=== PATIENT | male | born 1955 | race Caucasian/White ===

== ENCOUNTER 2020-04-24 13:27 | Emergency (ER) | payer MEDICAID ==
[~2020-04-24] VITALS: Ht 175.3 cm; Wt 80.0 kg
[2020-04-24 14:27] VITALS: BP 122/89
== END 2020-04-24 14:35 | disposition home or self-care (01) ==
LOC: ER 13:50
DX: U07.1 COVID-19 (principal); B34.9 Viral infection, unspecified
CPT/HCPCS: 99281; 99283

== ENCOUNTER 2020-04-27 07:39 | Inpatient (IN) | payer MEDICAID, OTHER ==
[~2020-04-27] VITALS: Ht 157.5 cm; Wt 76.2 kg
[2020-04-27 08:39] LABS: CHLORIDE 107 mEq/L (98-107)
[2020-04-27 09:01] LABS: HEMATOCRIT. 47.2 % (42.0-52.0); HEMOGLOBIN. 15.9 g/dL (14.0-18.0); MEAN CORPUSCULAR HEMOGLOBIN 30.7 pg (28.0-32.0); MEAN CORPUSCULAR VOLUME 90.8 fL (80.0-94.0); MEAN PLATELET VOLUME 8.4 fl (7.4-10.4); PLATELET 179 x1000/uL (130-400); RED CELL DISTRIBUTION WIDTH 13.8 % (11.6-14.6)
[2020-04-27 10:50] LABS: PLATELET ESTIMATE NORMAL
[2020-04-27] MEDS ORDERED: NITROGLYCERIN 0.4MG TABLET SL SL PRN (11:15)
[2020-04-27] MEDS ORDERED: ONDANSETRON HCL 4MG/2ML INJ IV PRN (11:15)
[2020-04-27] MEDS ORDERED: KETOROLAC 15MG/ML VIAL IV PRN (11:15)
[2020-04-27] MEDS ORDERED: DOCUSATE SODIUM 100MG CAPSULE PO PRN (11:15)
[2020-04-27] MEDS ORDERED: CLONIDINE 0.1MG TABLET PO PRN (11:15)
[2020-04-27] MEDS ORDERED: LORAZEPAM 0.5MG TABLET PO PRN (11:15)
[2020-04-27] MEDS ORDERED: MAGNESIUM/ALUMINUM HYDROXIDE/SIMETHICONE 30ML UDC PO PRN (11:15)
[2020-04-27] MEDS ORDERED: GUAIFENESIN 200MG/10ML SUGAR FREE UDC PO PRN (11:15)
[2020-04-27] MEDS ORDERED: ALBUTEROL 6.7GM HFA INHALER ORI PRN (11:15)
[2020-04-27 11:57] LABS: *COCAINE SCREEN URINE NEGATIVE (NEGATIVE); METHADONE URINE SCREEN NEGATIVE (NEGATIVE); OPIATES URINE SCREEN NEGATIVE (NEGATIVE); PHENCYCLIDINE URINE SCREEN NEGATIVE (NEGATIVE)
[2020-04-27 11:58] LABS: *AMPHETAMINES SCREEN URINE NEGATIVE (NEGATIVE); CANNABINOID URINE SCREEN NEGATIVE (NEGATIVE)
[2020-04-27 11:59] LABS: *BARBITURATES SCREEN URINE NEGATIVE (NEGATIVE)
[2020-04-27 12:00] LABS: *BENZODIAZEPINES SCREEN URINE NEGATIVE (NEGATIVE)
[2020-04-27] MEDS ORDERED: AZITHROMYCIN 500 MG in DEXT 5% WATER 250 ML IV SCH (12:00)
[2020-04-27] MEDS ORDERED: CEFTRIAXONE 1 G PREMIX 50 ML IV SCH (12:00)
[2020-04-27] MEDS: GUAIFENESIN/DM 600MG/30MG ER TAB 12HR PO SCH ×2 (14:43→22:00)
[2020-04-27] MEDS: ZINC SULFATE 220 MG ( 50 ) CAPSULE PO SCH (14:43)
[2020-04-27] MEDS: ENOXAPARIN 40MG/0.4ML SYR SUBCUT SCH (14:43)
[2020-04-27] MEDS: ASCORBIC ACID 500 MG TABLET PO SCH ×2 (14:43→22:00)
[2020-04-27] MEDS ORDERED: IOHEXOL-350 100 ML BOTTLE ONE (15:05)
[2020-04-27] MEDS: DEXAMETHASONE 10 MG/ML VIAL IV SCH (17:29)
[2020-04-27] MEDS: FAMOTIDINE 20MG TABLET PO SCH ×2 (17:29→22:00)
[2020-04-27] MEDS ORDERED: ZOLPIDEM TARTRATE 5MG TABLET PO PRN (20:00)
[2020-04-28 07:01] LABS: HEMATOCRIT. 47.4 % (42.0-52.0); HEMOGLOBIN. 16.1 g/dL (14.0-18.0); MEAN CORPUSCULAR HEMOGLOBIN 31.2 pg (28.0-32.0); MEAN CORPUSCULAR VOLUME 92.1 fL (80.0-94.0); MEAN PLATELET VOLUME 8.7 fl (7.4-10.4); PLATELET 194 x1000/uL (130-400); RED BLOOD CELL COUNT 5.15 mill/uL (4.7-6.1); RED CELL DISTRIBUTION WIDTH 14.2 % (11.6-14.6)
[2020-04-28 07:07] LABS: CHLORIDE 107 mEq/L (98-107)
[2020-04-28 07:20] LABS: PHOSPHORUS 3.2 mg/dL (2.5-4.9)
[2020-04-28 07:58] LABS: PLATELET ESTIMATE NORMAL
[2020-04-28 10:30] VITALS: BP 175/100
[2020-04-28] MEDS ORDERED: ALBU6.7H9 INH (11:12)
[2020-04-28] MEDS ORDERED: NAPR-679 PO (11:14)
[2020-04-28] MEDS ORDERED: DEXA6TAB MT (11:14)
[2020-04-28] MEDS ORDERED: DEXA6TAB6 MT (11:14)
[2020-04-28 11:26] VITALS: BP 175/100
[2020-04-28] MEDS: ASCORBIC ACID 500 MG TABLET PO SCH ×2 (11:50→19:58)
[2020-04-28] MEDS: ASPIRIN 325MG EC TABLET PO SCH (11:50)
[2020-04-28] MEDS: ENOXAPARIN 40MG/0.4ML SYR SUBCUT SCH (11:50)
[2020-04-28] MEDS: ACETAMINOPHEN 325MG TABLET PO PRN (11:51)
[2020-04-28] MEDS: ZINC SULFATE 220 MG ( 50 ) CAPSULE PO SCH (11:51)
[2020-04-28 12:00] VITALS: BP 122/84
[2020-04-28] MEDS: GUAIFENESIN/DM 600MG/30MG ER TAB 12HR PO SCH ×2 (12:33→19:58)
[2020-04-28] MEDS ORDERED: AZITHROMYCIN 500 MG in DEXT 5% WATER 250 ML IV SCH (13:00)
[2020-04-28] MEDS: FAMOTIDINE 20MG TABLET PO SCH ×2 (14:27→19:58)
[2020-04-28 16:00] VITALS: BP 139/89
[2020-04-28] MEDS: AZITHROMYCIN 500 MG in DEXT 5% WATER 250 ML IV SCH (18:04)
[2020-04-28 20:00] VITALS: BP 125/80
[2020-04-29] VITALS: BP 144/69
[2020-04-29 04:00] VITALS: BP 136/79
[2020-04-29] MEDS: ALBUTEROL 6.7GM HFA INHALER ORI SCH ×4 (06:00→22:47)
[2020-04-29 08:00] VITALS: BP 137/84
[2020-04-29] MEDS: ASPIRIN 325MG EC TABLET PO SCH (09:00)
[2020-04-29] MEDS: ZINC SULFATE 220 MG ( 50 ) CAPSULE PO SCH (09:00)
[2020-04-29] MEDS ORDERED: CEFTRIAXONE 1,000 MG in DEXTROSE 5% WATER 50 ML IV SCH (11:30)
[2020-04-29] MEDS: ASCORBIC ACID 500 MG TABLET PO SCH ×2 (11:59→21:57)
[2020-04-29] MEDS: FAMOTIDINE 20MG TABLET PO SCH ×2 (11:59→21:56)
[2020-04-29] MEDS: DEXAMETHASONE 10 MG/ML VIAL IV SCH ×2 (11:59→12:01)
[2020-04-29 12:00] VITALS: BP 139/89
[2020-04-29] MEDS: GUAIFENESIN/DM 600MG/30MG ER TAB 12HR PO SCH ×2 (12:00→21:57)
[2020-04-29] MEDS: ENOXAPARIN 40MG/0.4ML SYR SUBCUT SCH (12:06)
[2020-04-29] MEDS: ACETAMINOPHEN 325MG TABLET PO PRN ×2 (12:25→21:56)
[2020-04-29 15:09] VITALS: BP 135/95
[2020-04-29] MEDS: CEFTRIAXONE 1,000 MG in DEXTROSE 5% WATER 50 ML IV SCH (15:17)
[2020-04-29] MEDS: AZITHROMYCIN 500 MG in DEXT 5% WATER 250 ML IV SCH (17:06)
[2020-04-29 20:00] VITALS: BP 134/98
[2020-04-30] VITALS: BP 133/87
[2020-04-30 04:46] VITALS: BP 132/88
[2020-04-30] MEDS: ALBUTEROL 6.7GM HFA INHALER ORI SCH ×4 (04:57→22:08)
[2020-04-30 08:00] VITALS: BP 132/90
[2020-04-30] MEDS: ASCORBIC ACID 500 MG TABLET PO SCH ×2 (10:08→20:46)
[2020-04-30] MEDS: ENOXAPARIN 40MG/0.4ML SYR SUBCUT SCH (10:08)
[2020-04-30] MEDS: FAMOTIDINE 20MG TABLET PO SCH ×2 (10:09→20:46)
[2020-04-30] MEDS: ZINC SULFATE 220 MG ( 50 ) CAPSULE PO SCH (10:09)
[2020-04-30] MEDS: GUAIFENESIN/DM 600MG/30MG ER TAB 12HR PO SCH ×2 (10:09→20:45)
[2020-04-30] MEDS: ASPIRIN 325MG EC TABLET PO SCH (10:09)
[2020-04-30] MEDS: DEXAMETHASONE 10 MG/ML VIAL IV SCH (10:11)
[2020-04-30] MEDS ORDERED: SODIUM BICARBONATE 4% (2.4MEQ) 5ML VIAL IV ONE (11:29)
[2020-04-30] MEDS ORDERED: LIDOCAINE HCL 1% 20ML VIAL (Pyxis) INJ ONE (11:29)
[2020-04-30 12:00] VITALS: BP 132/86
[2020-04-30] MEDS: CEFTRIAXONE 1,000 MG in DEXTROSE 5% WATER 50 ML IV SCH (14:25)
[2020-04-30 16:00] VITALS: BP 135/93
[2020-04-30] MEDS ORDERED: FUROSEMIDE 40MG/4ML VIAL IVP NR ×2 (16:06→18:00)
[2020-04-30] MEDS: AZITHROMYCIN 500 MG in DEXT 5% WATER 250 ML IV SCH (16:52)
[2020-04-30 20:00] VITALS: BP 130/90
[2020-04-30] MEDS: ENOXAPARIN 30MG/0.3ML SYR SUBCUT SCH (20:46)
[2020-05-01] VITALS: BP 121/84
[2020-05-01] MEDS: ALBUTEROL 6.7GM HFA INHALER ORI SCH ×3 (01:20→18:02)
[2020-05-01 04:00] VITALS: BP 131/93
[2020-05-01 07:43] LABS: CHLORIDE 107 mEq/L (98-107)
[2020-05-01 08:00] VITALS: BP 126/81
[2020-05-01] MEDS: ASCORBIC ACID 500 MG TABLET PO SCH ×2 (09:00→20:48)
[2020-05-01] MEDS: GUAIFENESIN/DM 600MG/30MG ER TAB 12HR PO SCH ×2 (09:00→20:48)
[2020-05-01] MEDS: FAMOTIDINE 20MG TABLET PO SCH ×2 (09:31→21:16)
[2020-05-01] MEDS: DEXAMETHASONE 10 MG/ML VIAL IV SCH (09:31)
[2020-05-01] MEDS: ASPIRIN 325MG EC TABLET PO SCH (09:31)
[2020-05-01] MEDS: ZINC SULFATE 220 MG ( 50 ) CAPSULE PO SCH (09:31)
[2020-05-01] MEDS: ENOXAPARIN 30MG/0.3ML SYR SUBCUT SCH ×2 (09:32→20:49)
[2020-05-01 12:00] VITALS: BP 122/82
[2020-05-01 16:00] VITALS: BP 125/76
[2020-05-01] MEDS: CEFTRIAXONE 1,000 MG in DEXTROSE 5% WATER 50 ML IV SCH (18:03)
[2020-05-01] MEDS: AZITHROMYCIN 500 MG in DEXT 5% WATER 250 ML IV SCH (18:03)
[2020-05-01 20:00] VITALS: BP 133/80
[2020-05-02] VITALS: BP 128/66
[2020-05-02] MEDS: ALBUTEROL 6.7GM HFA INHALER ORI SCH ×4 (00:50→18:22)
[2020-05-02 04:00] VITALS: BP 127/80
[2020-05-02 08:00] VITALS: BP 118/85
[2020-05-02] MEDS: ACETAMINOPHEN 325MG TABLET PO PRN (09:44)
[2020-05-02] MEDS: ASPIRIN 325MG EC TABLET PO SCH (09:44)
[2020-05-02] MEDS: ASCORBIC ACID 500 MG TABLET PO SCH ×2 (09:44→20:33)
[2020-05-02] MEDS: GUAIFENESIN/DM 600MG/30MG ER TAB 12HR PO SCH ×2 (09:45→20:33)
[2020-05-02] MEDS: ZINC SULFATE 220 MG ( 50 ) CAPSULE PO SCH (09:45)
[2020-05-02] MEDS: FAMOTIDINE 20MG TABLET PO SCH ×2 (09:45→20:33)
[2020-05-02] MEDS: DEXAMETHASONE 10 MG/ML VIAL IV SCH (09:45)
[2020-05-02] MEDS: ENOXAPARIN 30MG/0.3ML SYR SUBCUT SCH ×2 (09:46→20:33)
[2020-05-02 12:00] VITALS: BP 119/83
[2020-05-02 16:00] VITALS: BP 121/85
[2020-05-02 20:00] VITALS: BP 133/83
[2020-05-03] VITALS: BP 122/83
[2020-05-03] MEDS: ALBUTEROL 6.7GM HFA INHALER ORI SCH ×5 (00:37→22:20)
[2020-05-03 04:00] VITALS: BP 129/81
[2020-05-03 08:00] VITALS: BP 129/82
[2020-05-03] MEDS: ENOXAPARIN 30MG/0.3ML SYR SUBCUT SCH ×2 (10:30→20:24)
[2020-05-03] MEDS: ASCORBIC ACID 500 MG TABLET PO SCH ×2 (10:31→20:24)
[2020-05-03] MEDS: ZINC SULFATE 220 MG ( 50 ) CAPSULE PO SCH (10:32)
[2020-05-03] MEDS: FAMOTIDINE 20MG TABLET PO SCH ×2 (10:32→20:24)
[2020-05-03] MEDS: GUAIFENESIN/DM 600MG/30MG ER TAB 12HR PO SCH ×2 (10:32→20:24)
[2020-05-03] MEDS: ASPIRIN 325MG EC TABLET PO SCH (10:32)
[2020-05-03] MEDS: DEXAMETHASONE 10 MG/ML VIAL IV SCH (10:33)
[2020-05-03 12:00] VITALS: BP 107/68
[2020-05-03 16:00] VITALS: BP 115/72
[2020-05-03 20:00] VITALS: BP 127/84
[2020-05-04] VITALS: BP 126/80
[2020-05-04 04:00] VITALS: BP 132/88
[2020-05-04] MEDS: ALBUTEROL 6.7GM HFA INHALER ORI SCH ×4 (04:00→21:30)
[2020-05-04 08:00] VITALS: BP 130/84
[2020-05-04] MEDS: ENOXAPARIN 30MG/0.3ML SYR SUBCUT SCH ×2 (08:38→21:29)
[2020-05-04] MEDS: ASPIRIN 325MG EC TABLET PO SCH (08:38)
[2020-05-04] MEDS: GUAIFENESIN/DM 600MG/30MG ER TAB 12HR PO SCH ×2 (08:38→21:29)
[2020-05-04] MEDS: DEXAMETHASONE 10 MG/ML VIAL IV SCH (08:38)
[2020-05-04] MEDS: ZINC SULFATE 220 MG ( 50 ) CAPSULE PO SCH (08:38)
[2020-05-04] MEDS: FAMOTIDINE 20MG TABLET PO SCH ×2 (08:38→21:29)
[2020-05-04] MEDS: ASCORBIC ACID 500 MG TABLET PO SCH ×2 (08:39→21:29)
[2020-05-04 12:00] VITALS: BP 128/79
[2020-05-04 16:00] VITALS: BP 126/84
[2020-05-04 20:00] VITALS: BP 122/82
[2020-05-05] VITALS: BP 130/79
[2020-05-05 04:00] VITALS: BP_SYST 128; BP_SYST 130; BP_DIAS 79; BP_DIAS 85
[2020-05-05] MEDS: ALBUTEROL 6.7GM HFA INHALER ORI SCH ×4 (05:17→23:56)
[2020-05-05 08:00] VITALS: BP 115/76
[2020-05-05] MEDS: ZINC SULFATE 220 MG ( 50 ) CAPSULE PO SCH (08:47)
[2020-05-05] MEDS: GUAIFENESIN/DM 600MG/30MG ER TAB 12HR PO SCH ×2 (08:47→20:28)
[2020-05-05] MEDS: FAMOTIDINE 20MG TABLET PO SCH ×2 (08:47→20:28)
[2020-05-05] MEDS: DEXAMETHASONE 10 MG/ML VIAL IV SCH (08:48)
[2020-05-05] MEDS: ASCORBIC ACID 500 MG TABLET PO SCH ×2 (08:48→20:28)
[2020-05-05] MEDS: ENOXAPARIN 30MG/0.3ML SYR SUBCUT SCH ×2 (08:48→20:28)
[2020-05-05] MEDS: ASPIRIN 325MG EC TABLET PO SCH (08:48)
[2020-05-05 16:00] VITALS: BP 111/82
[2020-05-05 20:00] VITALS: BP 123/73
[2020-05-06] VITALS: BP 116/79
[2020-05-06 04:00] VITALS: BP 116/75
[2020-05-06] MEDS: ACETAMINOPHEN 325MG TABLET PO PRN (04:08)
[2020-05-06] MEDS: ALBUTEROL 6.7GM HFA INHALER ORI SCH ×4 (06:07→23:24)
[2020-05-06 08:00] VITALS: BP 111/68
[2020-05-06] MEDS: ZINC SULFATE 220 MG ( 50 ) CAPSULE PO SCH (09:00)
[2020-05-06] MEDS: ASCORBIC ACID 500 MG TABLET PO SCH ×2 (09:00→21:44)
[2020-05-06] MEDS: GUAIFENESIN/DM 600MG/30MG ER TAB 12HR PO SCH ×2 (09:00→21:44)
[2020-05-06] MEDS: ASPIRIN 325MG EC TABLET PO SCH (09:01)
[2020-05-06] MEDS: FAMOTIDINE 20MG TABLET PO SCH ×2 (09:01→21:44)
[2020-05-06] MEDS: ENOXAPARIN 30MG/0.3ML SYR SUBCUT SCH ×2 (09:01→21:44)
[2020-05-06] MEDS: DEXAMETHASONE 10 MG/ML VIAL IV SCH (09:14)
[2020-05-06 16:00] VITALS: BP 112/75
[2020-05-06 20:00] VITALS: BP 117/79
[2020-05-07] VITALS: BP 121/78
[2020-05-07 04:00] VITALS: BP 119/84
[2020-05-07] MEDS: ALBUTEROL 6.7GM HFA INHALER ORI SCH ×3 (06:16→18:02)
[2020-05-07 07:54] VITALS: BP 123/75
[2020-05-07] MEDS: DEXAMETHASONE 10 MG/ML VIAL IV SCH (09:03)
[2020-05-07] MEDS: ASCORBIC ACID 500 MG TABLET PO SCH ×2 (09:03→20:58)
[2020-05-07] MEDS: ZINC SULFATE 220 MG ( 50 ) CAPSULE PO SCH (09:03)
[2020-05-07] MEDS: GUAIFENESIN/DM 600MG/30MG ER TAB 12HR PO SCH ×2 (09:03→20:58)
[2020-05-07] MEDS: FAMOTIDINE 20MG TABLET PO SCH ×2 (09:03→20:58)
[2020-05-07] MEDS: ASPIRIN 325MG EC TABLET PO SCH (09:03)
[2020-05-07] MEDS: ENOXAPARIN 30MG/0.3ML SYR SUBCUT SCH ×2 (09:04→20:58)
[2020-05-07 12:00] VITALS: BP 116/80
[2020-05-07 16:00] VITALS: BP 124/77
[2020-05-07 20:00] VITALS: BP 113/79
[2020-05-08] VITALS: BP 126/82
[2020-05-08] MEDS: ALBUTEROL 6.7GM HFA INHALER ORI SCH ×5 (02:49→23:25)
[2020-05-08 04:00] VITALS: BP 119/83
[2020-05-08 08:00] VITALS: BP 119/79
[2020-05-08] MEDS: ENOXAPARIN 30MG/0.3ML SYR SUBCUT SCH ×2 (09:35→20:49)
[2020-05-08] MEDS: FAMOTIDINE 20MG TABLET PO SCH ×2 (09:36→20:49)
[2020-05-08] MEDS: ASCORBIC ACID 500 MG TABLET PO SCH ×2 (09:36→20:49)
[2020-05-08] MEDS: ASPIRIN 325MG EC TABLET PO SCH (09:36)
[2020-05-08] MEDS: ZINC SULFATE 220 MG ( 50 ) CAPSULE PO SCH (09:36)
[2020-05-08] MEDS: GUAIFENESIN/DM 600MG/30MG ER TAB 12HR PO SCH ×2 (09:36→20:49)
[2020-05-08 12:00] VITALS: BP 122/76
[2020-05-08 16:04] VITALS: BP 114/79
[2020-05-08 20:00] VITALS: BP 101/70
[2020-05-09] VITALS: BP 106/77
[2020-05-09 04:00] VITALS: BP 110/70
[2020-05-09] MEDS: ALBUTEROL 6.7GM HFA INHALER ORI SCH ×3 (05:29→17:05)
[2020-05-09 07:35] LABS: CHLORIDE 105 mEq/L (98-107)
[2020-05-09 08:00] VITALS: BP 106/70
[2020-05-09] MEDS: ENOXAPARIN 30MG/0.3ML SYR SUBCUT SCH (08:49)
[2020-05-09] MEDS: ASPIRIN 325MG EC TABLET PO SCH (08:49)
[2020-05-09] MEDS: ZINC SULFATE 220 MG ( 50 ) CAPSULE PO SCH (08:49)
[2020-05-09] MEDS: ASCORBIC ACID 500 MG TABLET PO SCH ×2 (08:49→21:52)
[2020-05-09] MEDS: FAMOTIDINE 20MG TABLET PO SCH ×2 (08:49→21:52)
[2020-05-09] MEDS: GUAIFENESIN/DM 600MG/30MG ER TAB 12HR PO SCH ×2 (08:49→21:52)
[2020-05-09 10:10] LABS: HEMATOCRIT. 48.1 % (42.0-52.0); HEMOGLOBIN. 16.2 g/dL (14.0-18.0); MEAN CORPUSCULAR HEMOGLOBIN 30.6 pg (28.0-32.0); MEAN CORPUSCULAR VOLUME 90.8 fL (80.0-94.0); MEAN PLATELET VOLUME 10.8 fl (7.4-10.4); RED CELL DISTRIBUTION WIDTH 14.3 % (11.6-14.6)
[2020-05-09 10:20] LABS: PLATELET 30 x1000/uL (130-400)
[2020-05-09 10:50] LABS: PLATELET ESTIMATE MARKEDLY DECREASED
[2020-05-09 12:00] VITALS: BP 117/82
[2020-05-09 16:00] VITALS: BP 119/81
[2020-05-09 20:00] VITALS: BP 113/77
[2020-05-10] VITALS: BP 120/60
[2020-05-10 04:00] VITALS: BP 100/67
[2020-05-10 08:00] VITALS: BP 102/70
[2020-05-10] MEDS: GUAIFENESIN/DM 600MG/30MG ER TAB 12HR PO SCH ×2 (08:58→20:44)
[2020-05-10] MEDS: FAMOTIDINE 20MG TABLET PO SCH ×2 (08:58→20:44)
[2020-05-10] MEDS: ZINC SULFATE 220 MG ( 50 ) CAPSULE PO SCH (08:58)
[2020-05-10] MEDS: ASCORBIC ACID 500 MG TABLET PO SCH ×2 (08:58→20:44)
[2020-05-10] MEDS: ASPIRIN 325MG EC TABLET PO SCH (08:59)
[2020-05-10 09:09] LABS: HEMATOCRIT. 49.6 % (42.0-52.0); HEMOGLOBIN. 16.8 g/dL (14.0-18.0); MEAN CORPUSCULAR HEMOGLOBIN 30.9 pg (28.0-32.0); MEAN CORPUSCULAR VOLUME 91.2 fL (80.0-94.0); MEAN PLATELET VOLUME 10.6 fl (7.4-10.4); RED BLOOD CELL COUNT 5.44 mill/uL (4.7-6.1); RED CELL DISTRIBUTION WIDTH 14.1 % (11.6-14.6)
[2020-05-10 09:32] LABS: PLATELET 12 x1000/uL (130-400)
[2020-05-10 10:39] LABS: PLATELET ESTIMATE MARKEDLY DECREASED
[2020-05-10] MEDS: ALBUTEROL 6.7GM HFA INHALER ORI SCH ×2 (12:00→18:00)
[2020-05-10 12:30] VITALS: BP 111/82
[2020-05-10] MEDS: ACETAMINOPHEN 325MG TABLET PO PRN (14:18)
[2020-05-10 16:00] VITALS: BP_SYST 110; BP_SYST 111; BP_DIAS 75; BP_DIAS 82
[2020-05-10] MEDS ORDERED: METHYLPREDNISOLONE SOD SUCC 125 MG/2 ML VIAL IV NR (16:15)
[2020-05-10 20:00] VITALS: BP 108/73
[2020-05-10] MEDS: METHYLPREDNISOLONE SOD SUCC 40 MG/ML VIAL IV SCH (20:44)
[2020-05-11] VITALS: BP 118/77
[2020-05-11] MEDS: ALBUTEROL 6.7GM HFA INHALER ORI SCH ×4 (00:28→17:45)
[2020-05-11] MEDS: ACETAMINOPHEN 325MG TABLET PO PRN ×3 (01:46→17:47)
[2020-05-11 04:00] VITALS: BP 116/74
[2020-05-11 08:00] VITALS: BP 118/76
[2020-05-11 09:30] LABS: HEMATOCRIT. 51.3 % (42.0-52.0); HEMOGLOBIN. 17.2 g/dL (14.0-18.0); MEAN CORPUSCULAR HEMOGLOBIN 30.4 pg (28.0-32.0); MEAN CORPUSCULAR VOLUME 90.7 fL (80.0-94.0); MEAN PLATELET VOLUME 10.6 fl (7.4-10.4); RED BLOOD CELL COUNT 5.66 mill/uL (4.7-6.1); RED CELL DISTRIBUTION WIDTH 14.1 % (11.6-14.6)
[2020-05-11 09:33] LABS: PLATELET 13 x1000/uL (130-400)
[2020-05-11 09:34] LABS: CHLORIDE 105 mEq/L (98-107)
[2020-05-11 09:35] LABS: D-DIMER 20.07 mg/L FEU (<0.50); PARTIAL THROMBOPLASTIN TIME 30.9 sec (23.4-31.0)
[2020-05-11 09:45] LABS: CREATINE KINASE 40 IU/L (39-308)
[2020-05-11] MEDS: METHYLPREDNISOLONE SOD SUCC 40 MG/ML VIAL IV SCH (09:52)
[2020-05-11] MEDS: ZINC SULFATE 220 MG ( 50 ) CAPSULE PO SCH (09:52)
[2020-05-11] MEDS: FAMOTIDINE 20MG TABLET PO SCH ×2 (09:52→22:06)
[2020-05-11] MEDS: ASCORBIC ACID 500 MG TABLET PO SCH ×2 (09:52→22:07)
[2020-05-11] MEDS: GUAIFENESIN/DM 600MG/30MG ER TAB 12HR PO SCH ×2 (09:54→22:06)
[2020-05-11 11:04] LABS: PLATELET ESTIMATE MARKEDLY DECREASED
[2020-05-11 12:00] VITALS: BP 121/78
[2020-05-11] MEDS: DEXAMETHASONE 4MG/ML 1ML VIAL IV SCH ×2 (14:03→17:45)
[2020-05-11 16:00] VITALS: BP 112/76
[2020-05-11 20:00] VITALS: BP 123/80
[2020-05-12] VITALS: BP 119/77
[2020-05-12] MEDS: DEXAMETHASONE 4MG/ML 1ML VIAL IV SCH ×4 (00:22→18:41)
[2020-05-12] MEDS: ALBUTEROL 6.7GM HFA INHALER ORI SCH ×4 (00:23→18:41)
[2020-05-12 04:00] VITALS: BP 115/82
[2020-05-12 08:46] VITALS: BP 118/82
[2020-05-12 09:06] LABS: ANTI-NUCLEAR ANTIBODIES DIRECT Negative (Negative)
[2020-05-12] MEDS: FAMOTIDINE 20MG TABLET PO SCH (09:36)
[2020-05-12] MEDS: ASCORBIC ACID 500 MG TABLET PO SCH (09:36)
[2020-05-12] MEDS: ZINC SULFATE 220 MG ( 50 ) CAPSULE PO SCH (09:36)
[2020-05-12] MEDS: GUAIFENESIN/DM 600MG/30MG ER TAB 12HR PO SCH (09:36)
[2020-05-12 11:52] VITALS: BP 107/69
[2020-05-12 16:25] VITALS: BP 112/69
[2020-05-12 20:00] VITALS: BP 110/73
[2020-05-13] VITALS: BP 115/72
[2020-05-13] MEDS: ASCORBIC ACID 500 MG TABLET PO SCH ×3 (00:12→22:41)
[2020-05-13] MEDS: GUAIFENESIN/DM 600MG/30MG ER TAB 12HR PO SCH ×3 (00:12→22:41)
[2020-05-13] MEDS: FAMOTIDINE 20MG TABLET PO SCH ×3 (00:12→23:50)
[2020-05-13] MEDS: DEXAMETHASONE 4MG/ML 1ML VIAL IV SCH ×5 (00:15→23:50)
[2020-05-13] MEDS: ALBUTEROL 6.7GM HFA INHALER ORI SCH ×5 (00:15→23:57)
[2020-05-13 04:00] VITALS: BP 112/79
[2020-05-13 08:00] VITALS: BP 119/76
[2020-05-13] MEDS: ZINC SULFATE 220 MG ( 50 ) CAPSULE PO SCH (08:39)
[2020-05-13 11:23] VITALS: BP 126/80
[2020-05-13 13:07] LABS: ANTI-MYELOPEROXIDASE AB < 9.0 U/mL (0.0-9.0); ANTI-PROTEINASE 3 ABS < 3.5 U/mL (0.0-3.5); ATYPICAL P-ANCA <1:20 titer (Neg:<1:20); CYTOPLASMIC C-ANCA <1:20 titer (Neg:<1:20); PERINUCLEAR P-ANCA <1:20 titer (Neg:<1:20)
[2020-05-13 15:44] VITALS: BP 124/80
[2020-05-13 20:00] VITALS: BP 118/81
[2020-05-14] VITALS: BP 112/71
[2020-05-14] MEDS: ACETAMINOPHEN 325MG TABLET PO PRN ×2 (00:01→20:26)
[2020-05-14 04:00] VITALS: BP 115/76
[2020-05-14] MEDS: DEXAMETHASONE 4MG/ML 1ML VIAL IV SCH ×4 (05:51→23:38)
[2020-05-14] MEDS: ALBUTEROL 6.7GM HFA INHALER ORI SCH ×4 (05:52→23:38)
[2020-05-14 08:00] VITALS: BP 116/85
[2020-05-14] MEDS: ASCORBIC ACID 500 MG TABLET PO SCH ×2 (09:40→20:17)
[2020-05-14] MEDS: FAMOTIDINE 20MG TABLET PO SCH ×2 (09:40→20:17)
[2020-05-14] MEDS: ZINC SULFATE 220 MG ( 50 ) CAPSULE PO SCH (09:40)
[2020-05-14 12:00] VITALS: BP 120/78
[2020-05-14] MEDS: GUAIFENESIN/DM 600MG/30MG ER TAB 12HR PO SCH ×2 (13:05→20:17)
[2020-05-14 14:31] LABS: BG BASE EXCESS -2.8 mmol/L (-2.0-2.0); BG CARBOXYHEMOGLOBIN 0.8 % (0.5-1.5); BG DEOXYHEMOGLOBIN 11.6 % (0.0-5.0); BG FRACTION INSPIRED OXYGEN 99.9; BG HCO3 ACT 19.6 mmol/L (22.0-26.0); BG METHEMOGLOBIN 0.3 % (0.0-1.5); BG OXYGEN SATURATION 88.3 % (92.0-98.5); BG OXYHEMOGLOBIN 87.3 % (94.0-97.0); BG PCO2 29.3 mmHg (35.0-45.0); BG PH 7.444 (7.350-7.450); BG PO2 53.5 mmHg (75.0-100.0); BG SAMPLE SITE RIGHT RADIAL; BG TOTAL HEMOGLOBIN 17.2 g/dL (12.0-18.0); BG VENT MODE MASK - NRB
[2020-05-14 16:00] VITALS: BP 114/81
[2020-05-14 20:00] VITALS: BP 128/79
[2020-05-15] VITALS: BP 101/59
[2020-05-15 04:00] VITALS: BP 115/70
[2020-05-15] MEDS: ALBUTEROL 6.7GM HFA INHALER ORI SCH ×4 (05:10→23:58)
[2020-05-15] MEDS: DEXAMETHASONE 4MG/ML 1ML VIAL IV SCH ×4 (05:10→23:58)
[2020-05-15 08:00] VITALS: BP 108/77
[2020-05-15] MEDS: GUAIFENESIN/DM 600MG/30MG ER TAB 12HR PO SCH ×2 (08:20→21:04)
[2020-05-15] MEDS: ZINC SULFATE 220 MG ( 50 ) CAPSULE PO SCH (08:20)
[2020-05-15] MEDS: FAMOTIDINE 20MG TABLET PO SCH ×2 (08:20→21:04)
[2020-05-15] MEDS: ASCORBIC ACID 500 MG TABLET PO SCH ×2 (08:20→21:04)
[2020-05-15 12:00] VITALS: BP 135/69
[2020-05-15 16:00] VITALS: BP 119/75
[2020-05-15 20:00] VITALS: BP 116/77
[2020-05-16] VITALS: BP 110/74
[2020-05-16 04:00] VITALS: BP 115/81
[2020-05-16] MEDS: DEXAMETHASONE 4MG/ML 1ML VIAL IV SCH ×4 (05:06→23:33)
[2020-05-16] MEDS: ALBUTEROL 6.7GM HFA INHALER ORI SCH ×4 (05:07→23:36)
[2020-05-16 08:00] VITALS: BP 122/79
[2020-05-16] MEDS: ASCORBIC ACID 500 MG TABLET PO SCH ×2 (08:00→21:22)
[2020-05-16] MEDS: FAMOTIDINE 20MG TABLET PO SCH ×2 (08:00→21:22)
[2020-05-16] MEDS: GUAIFENESIN/DM 600MG/30MG ER TAB 12HR PO SCH ×2 (08:00→22:50)
[2020-05-16] MEDS: ZINC SULFATE 220 MG ( 50 ) CAPSULE PO SCH (08:00)
[2020-05-16 20:00] VITALS: BP 108/75
[2020-05-17] VITALS: BP 107/75
[2020-05-17 04:00] VITALS: BP 107/66
[2020-05-17] MEDS: DEXAMETHASONE 4MG/ML 1ML VIAL IV SCH ×4 (05:25→23:30)
[2020-05-17] MEDS: ALBUTEROL 6.7GM HFA INHALER ORI SCH ×4 (05:25→23:30)
[2020-05-17 08:00] VITALS: BP 120/75
[2020-05-17] MEDS: ASCORBIC ACID 500 MG TABLET PO SCH ×2 (08:14→20:55)
[2020-05-17] MEDS: ZINC SULFATE 220 MG ( 50 ) CAPSULE PO SCH (08:14)
[2020-05-17] MEDS: GUAIFENESIN/DM 600MG/30MG ER TAB 12HR PO SCH ×2 (08:14→20:55)
[2020-05-17] MEDS: FAMOTIDINE 20MG TABLET PO SCH ×2 (08:14→20:55)
[2020-05-17 12:00] VITALS: BP 104/70
[2020-05-17 20:00] VITALS: BP 108/73
[2020-05-18] VITALS: BP 99/65
[2020-05-18 04:00] VITALS: BP 107/63
[2020-05-18] MEDS: DEXAMETHASONE 4MG/ML 1ML VIAL IV SCH ×4 (05:21→23:27)
[2020-05-18] MEDS: ALBUTEROL 6.7GM HFA INHALER ORI SCH ×3 (05:22→18:01)
[2020-05-18 08:00] VITALS: BP 113/78
[2020-05-18] MEDS: ZINC SULFATE 220 MG ( 50 ) CAPSULE PO SCH (08:36)
[2020-05-18] MEDS: GUAIFENESIN/DM 600MG/30MG ER TAB 12HR PO SCH ×2 (08:36→21:20)
[2020-05-18] MEDS: ASCORBIC ACID 500 MG TABLET PO SCH ×2 (08:36→21:20)
[2020-05-18 12:00] VITALS: BP 108/73
[2020-05-18] MEDS: FAMOTIDINE 20MG TABLET PO SCH ×2 (12:12→21:20)
[2020-05-18 16:00] VITALS: BP_SYST 175
[2020-05-18 20:00] VITALS: BP 121/71
[2020-05-19] VITALS: BP 107/65
[2020-05-19 04:00] VITALS: BP 113/55
[2020-05-19] MEDS: DEXAMETHASONE 4MG/ML 1ML VIAL IV SCH ×3 (05:36→18:30)
[2020-05-19] MEDS: ALBUTEROL 6.7GM HFA INHALER ORI SCH ×3 (05:37→18:30)
[2020-05-19 08:00] VITALS: BP 113/73
[2020-05-19] MEDS: ZINC SULFATE 220 MG ( 50 ) CAPSULE PO SCH (09:07)
[2020-05-19] MEDS: ASCORBIC ACID 500 MG TABLET PO SCH ×2 (09:07→21:13)
[2020-05-19] MEDS: FAMOTIDINE 20MG TABLET PO SCH ×2 (09:08→21:13)
[2020-05-19] MEDS: GUAIFENESIN/DM 600MG/30MG ER TAB 12HR PO SCH ×2 (09:08→21:13)
[2020-05-19 12:00] VITALS: BP 108/73
[2020-05-19 16:00] VITALS: BP 112/67
[2020-05-19 16:24] LABS: HEMATOCRIT. 46.1 % (42.0-52.0); HEMOGLOBIN. 15.4 g/dL (14.0-18.0); MEAN CORPUSCULAR HEMOGLOBIN 30.3 pg (28.0-32.0); MEAN CORPUSCULAR VOLUME 90.5 fL (80.0-94.0); MEAN PLATELET VOLUME 9.4 fl (7.4-10.4); PLATELET 110 x1000/uL (130-400); RED BLOOD CELL COUNT 5.09 mill/uL (4.7-6.1); RED CELL DISTRIBUTION WIDTH 14.4 % (11.6-14.6)
[2020-05-19 17:23] LABS: PLATELET ESTIMATE DECREASED
[2020-05-19 20:00] VITALS: BP 103/64
[2020-05-20] VITALS: BP 105/71
[2020-05-20] MEDS: DEXAMETHASONE 4MG/ML 1ML VIAL IV SCH ×5 (00:54→23:24)
[2020-05-20 04:00] VITALS: BP 102/69
[2020-05-20] MEDS: ALBUTEROL 6.7GM HFA INHALER ORI SCH ×5 (05:37→23:25)
[2020-05-20 06:26] LABS: HEMOGLOBIN. 15.1 g/dL (14.0-18.0); MEAN CORPUSCULAR HEMOGLOBIN 30.3 pg (28.0-32.0); MEAN CORPUSCULAR VOLUME 90.4 fL (80.0-94.0); MEAN PLATELET VOLUME 9.5 fl (7.4-10.4); PLATELET 114 x1000/uL (130-400); RED BLOOD CELL COUNT 4.97 mill/uL (4.7-6.1); RED CELL DISTRIBUTION WIDTH 14.4 % (11.6-14.6)
[2020-05-20 06:37] LABS: CHLORIDE 103 mEq/L (98-107)
[2020-05-20 08:00] VITALS: BP 108/74
[2020-05-20] MEDS: ASCORBIC ACID 500 MG TABLET PO SCH ×2 (10:34→20:49)
[2020-05-20] MEDS: FAMOTIDINE 20MG TABLET PO SCH ×2 (10:34→20:49)
[2020-05-20] MEDS: ZINC SULFATE 220 MG ( 50 ) CAPSULE PO SCH (10:35)
[2020-05-20] MEDS: GUAIFENESIN/DM 600MG/30MG ER TAB 12HR PO SCH ×2 (10:35→20:49)
[2020-05-20 12:00] VITALS: BP 112/67
[2020-05-20 16:00] VITALS: BP 107/69
[2020-05-20 20:00] VITALS: BP 107/59
[2020-05-20 21:54] LABS: PLATELET ESTIMATE DECREASED
[2020-05-21] VITALS: BP 96/68
[2020-05-21 04:00] VITALS: BP 101/71
[2020-05-21] MEDS: DEXAMETHASONE 4MG/ML 1ML VIAL IV SCH ×4 (05:21→23:53)
[2020-05-21] MEDS: ALBUTEROL 6.7GM HFA INHALER ORI SCH ×4 (05:22→23:53)
[2020-05-21 08:00] VITALS: BP 102/47
[2020-05-21] MEDS: GUAIFENESIN/DM 600MG/30MG ER TAB 12HR PO SCH ×2 (09:32→20:53)
[2020-05-21] MEDS: ASCORBIC ACID 500 MG TABLET PO SCH ×2 (11:02→20:53)
[2020-05-21] MEDS: ZINC SULFATE 220 MG ( 50 ) CAPSULE PO SCH (11:02)
[2020-05-21] MEDS: FAMOTIDINE 20MG TABLET PO SCH ×2 (11:02→20:53)
[2020-05-21 12:00] VITALS: BP 128/92
[2020-05-21 20:00] VITALS: BP 122/60
[2020-05-22 00:06] VITALS: BP 101/70
[2020-05-22 04:00] VITALS: BP 106/61
[2020-05-22] MEDS: ALBUTEROL 6.7GM HFA INHALER ORI SCH ×4 (05:47→23:35)
[2020-05-22] MEDS: DEXAMETHASONE 4MG/ML 1ML VIAL IV SCH ×4 (05:47→23:33)
[2020-05-22 08:00] VITALS: BP 104/66
[2020-05-22] MEDS: GUAIFENESIN/DM 600MG/30MG ER TAB 12HR PO SCH ×2 (09:28→21:05)
[2020-05-22] MEDS: ASCORBIC ACID 500 MG TABLET PO SCH ×2 (09:28→21:05)
[2020-05-22] MEDS: FAMOTIDINE 20MG TABLET PO SCH ×2 (09:28→21:05)
[2020-05-22] MEDS: ZINC SULFATE 220 MG ( 50 ) CAPSULE PO SCH (09:28)
[2020-05-22 12:00] VITALS: BP 101/66
[2020-05-22 20:00] VITALS: BP 105/65
[2020-05-23] VITALS: BP 108/62
[2020-05-23 04:00] VITALS: BP 106/67
[2020-05-23] MEDS: DEXAMETHASONE 4MG/ML 1ML VIAL IV SCH ×3 (05:31→18:08)
[2020-05-23] MEDS: ALBUTEROL 6.7GM HFA INHALER ORI SCH ×3 (05:33→18:08)
[2020-05-23 08:00] VITALS: BP 99/71
[2020-05-23] MEDS: ASCORBIC ACID 500 MG TABLET PO SCH ×2 (09:02→20:43)
[2020-05-23] MEDS: GUAIFENESIN/DM 600MG/30MG ER TAB 12HR PO SCH ×2 (09:02→20:43)
[2020-05-23] MEDS: ZINC SULFATE 220 MG ( 50 ) CAPSULE PO SCH (09:03)
[2020-05-23 12:00] VITALS: BP 101/69
[2020-05-23] MEDS: FAMOTIDINE 20MG TABLET PO SCH ×2 (12:20→20:43)
[2020-05-23 16:00] VITALS: BP 102/76
[2020-05-23 20:00] VITALS: BP 99/71
[2020-05-24] VITALS: BP 98/68
[2020-05-24] MEDS: ALBUTEROL 6.7GM HFA INHALER ORI SCH ×4 (00:56→19:01)
[2020-05-24] MEDS: DEXAMETHASONE 4MG/ML 1ML VIAL IV SCH ×4 (00:56→19:00)
[2020-05-24 04:00] VITALS: BP 103/67
[2020-05-24 06:18] LABS: HEMATOCRIT. 44.5 % (42.0-52.0); HEMOGLOBIN. 15.2 g/dL (14.0-18.0); MEAN CORPUSCULAR HEMOGLOBIN 30.9 pg (28.0-32.0); MEAN CORPUSCULAR VOLUME 90.2 fL (80.0-94.0); MEAN PLATELET VOLUME 8.8 fl (7.4-10.4); PLATELET 122 x1000/uL (130-400); RED BLOOD CELL COUNT 4.93 mill/uL (4.7-6.1)
[2020-05-24 06:20] LABS: CHLORIDE 103 mEq/L (98-107)
[2020-05-24 08:00] VITALS: BP 102/71
[2020-05-24] MEDS: GUAIFENESIN/DM 600MG/30MG ER TAB 12HR PO SCH ×2 (10:35→20:42)
[2020-05-24] MEDS: ZINC SULFATE 220 MG ( 50 ) CAPSULE PO SCH (10:35)
[2020-05-24] MEDS: FAMOTIDINE 20MG TABLET PO SCH ×2 (10:35→20:42)
[2020-05-24] MEDS: ASCORBIC ACID 500 MG TABLET PO SCH ×2 (10:35→20:42)
[2020-05-24 12:00] VITALS: BP 101/59
[2020-05-24 14:07] LABS: PLATELET ESTIMATE SLIGHTLY DECREASED
[2020-05-24 16:00] VITALS: BP 111/73
[2020-05-25] VITALS: BP 104/71
[2020-05-25] MEDS: ALBUTEROL 6.7GM HFA INHALER ORI SCH ×3 (00:04→11:11)
[2020-05-25] MEDS: DEXAMETHASONE 4MG/ML 1ML VIAL IV SCH ×5 (00:04→23:41)
[2020-05-25 04:00] VITALS: BP 108/66
[2020-05-25 08:00] VITALS: BP 114/73
[2020-05-25] MEDS: GUAIFENESIN/DM 600MG/30MG ER TAB 12HR PO SCH (08:32)
[2020-05-25] MEDS: ZINC SULFATE 220 MG ( 50 ) CAPSULE PO SCH (08:32)
[2020-05-25] MEDS: ASCORBIC ACID 500 MG TABLET PO SCH (08:32)
[2020-05-25] MEDS: FAMOTIDINE 20MG TABLET PO SCH ×2 (08:32→20:24)
[2020-05-25 16:00] VITALS: BP 112/84
[2020-05-25 20:00] VITALS: BP 120/67
[2020-05-26 04:00] VITALS: BP 107/63
[2020-05-26] MEDS: DEXAMETHASONE 4MG/ML 1ML VIAL IV SCH ×4 (05:58→23:14)
[2020-05-26 08:00] VITALS: BP 107/72
[2020-05-26] MEDS: FAMOTIDINE 20MG TABLET PO SCH (08:45)
[2020-05-26 12:00] VITALS: BP 106/71
[2020-05-26] MEDS: ACETAMINOPHEN 325MG TABLET PO PRN (15:39)
[2020-05-26 16:00] VITALS: BP 104/78
[2020-05-26] MEDS ORDERED: MAGNESIUM/ALUMINUM HYDROXIDE/SIMETHICONE 30ML UDC PO PRN (17:00)
[2020-05-26 20:00] VITALS: BP 97/72
[2020-05-27] VITALS: BP 91/62
[2020-05-27 04:00] VITALS: BP 103/70
[2020-05-27] MEDS: DEXAMETHASONE 4MG/ML 1ML VIAL IV SCH ×3 (05:39→17:42)
[2020-05-27 08:00] VITALS: BP 103/61
[2020-05-27] MEDS: MULTIVITAMINS,THER W-MINERALS TABLET PO SCH (09:23)
[2020-05-27 12:00] VITALS: BP 109/65
[2020-05-27 16:00] VITALS: BP 122/77
[2020-05-27 20:00] VITALS: BP 107/69
[2020-05-28] VITALS: BP 102/68
[2020-05-28] MEDS: DEXAMETHASONE 4MG/ML 1ML VIAL IV SCH ×4 (00:55→17:42)
[2020-05-28 04:00] VITALS: BP 97/65
[2020-05-28 08:00] VITALS: BP 106/70
[2020-05-28] MEDS: MULTIVITAMINS,THER W-MINERALS TABLET PO SCH (08:27)
[2020-05-28 12:00] VITALS: BP 128/83
[2020-05-28 16:00] VITALS: BP 102/68
[2020-05-28 20:00] VITALS: BP 98/58
[2020-05-29] VITALS: BP 97/65
[2020-05-29] MEDS: DEXAMETHASONE 4MG/ML 1ML VIAL IV SCH ×4 (00:27→17:33)
[2020-05-29 04:00] VITALS: BP 99/61
[2020-05-29 08:00] VITALS: BP 96/60
[2020-05-29 08:16] LABS: HEMATOCRIT. 43.8 % (42.0-52.0); HEMOGLOBIN. 14.9 g/dL (14.0-18.0); MEAN CORPUSCULAR HEMOGLOBIN 31.2 pg (28.0-32.0); MEAN CORPUSCULAR VOLUME 91.8 fL (80.0-94.0); MEAN PLATELET VOLUME 9.1 fl (7.4-10.4); PLATELET 71 x1000/uL (130-400); RED BLOOD CELL COUNT 4.77 mill/uL (4.7-6.1); RED CELL DISTRIBUTION WIDTH 15.4 % (11.6-14.6)
[2020-05-29] MEDS: MULTIVITAMINS,THER W-MINERALS TABLET PO SCH (08:35)
[2020-05-29] MEDS: ASCORBIC ACID 500 MG TABLET PO SCH (08:35)
[2020-05-29 08:50] LABS: CHLORIDE 104 mEq/L (98-107)
[2020-05-29 12:00] VITALS: BP 107/69
[2020-05-29 16:00] VITALS: BP 101/71
[2020-05-29 20:00] VITALS: BP 104/66
[2020-05-30] VITALS: BP 95/64
[2020-05-30 04:00] VITALS: BP 98/60
[2020-05-30] MEDS: DEXAMETHASONE 4MG/ML 1ML VIAL IV SCH ×4 (07:07→17:52)
[2020-05-30 08:00] VITALS: BP 93/62
[2020-05-30] MEDS: MULTIVITAMINS,THER W-MINERALS TABLET PO SCH (09:49)
[2020-05-30] MEDS: ASCORBIC ACID 500 MG TABLET PO SCH (09:49)
[2020-05-30 12:00] VITALS: BP 107/71
[2020-05-30 16:00] VITALS: BP 108/71
[2020-05-30 20:00] VITALS: BP 97/64
[2020-05-30 20:14] LABS: PLATELET ESTIMATE DECREASED
[2020-05-31] MEDS: DEXAMETHASONE 4MG/ML 1ML VIAL IV SCH ×4 (01:05→17:31)
[2020-05-31 04:00] VITALS: BP 119/64
[2020-05-31 08:00] VITALS: BP 95/59
[2020-05-31] MEDS: MULTIVITAMINS,THER W-MINERALS TABLET PO SCH (08:10)
[2020-05-31] MEDS: ASCORBIC ACID 500 MG TABLET PO SCH (08:10)
[2020-05-31 12:00] VITALS: BP 92/66
[2020-05-31 16:00] VITALS: BP 96/64
[2020-05-31 20:00] VITALS: BP 99/69
[2020-06-01] VITALS: BP 99/72
[2020-06-01] MEDS: DEXAMETHASONE 4MG/ML 1ML VIAL IV SCH ×5 (00:27→23:37)
[2020-06-01 04:00] VITALS: BP 92/64
[2020-06-01 08:00] VITALS: BP 106/73
[2020-06-01 08:53] LABS: BG BASE EXCESS 0.8 mmol/L (-2.0-2.0); BG CARBOXYHEMOGLOBIN 1.2 % (0.5-1.5); BG DEOXYHEMOGLOBIN 10.4 % (0.0-5.0); BG FRACTION INSPIRED OXYGEN 100; BG HCO3 ACT 23.5 mmol/L (22.0-26.0); BG METHEMOGLOBIN 0.3 % (0.0-1.5); BG OXYGEN SATURATION 89.4 % (92.0-98.5); BG OXYHEMOGLOBIN 88.1 % (94.0-97.0); BG PCO2 32.4 mmHg (35.0-45.0); BG PH 7.479 (7.350-7.450); BG PO2 52.6 mmHg (75.0-100.0); BG SAMPLE SITE RIGHT RADIAL; BG TOTAL HEMOGLOBIN 15.3 g/dL (12.0-18.0); BG VENT MODE MASK - NRB
[2020-06-01] MEDS: ASCORBIC ACID 500 MG TABLET PO SCH (09:41)
[2020-06-01] MEDS: MULTIVITAMINS,THER W-MINERALS TABLET PO SCH (09:41)
[2020-06-01 12:00] VITALS: BP 91/70
[2020-06-01 16:00] VITALS: BP 108/72
[2020-06-01 20:00] VITALS: BP 92/68
[2020-06-02] VITALS: BP 95/59
[2020-06-02 04:00] VITALS: BP 98/62
[2020-06-02] MEDS: DEXAMETHASONE 4MG/ML 1ML VIAL IV SCH ×3 (06:35→18:09)
[2020-06-02 08:00] VITALS: BP 94/59
[2020-06-02] MEDS: MULTIVITAMINS,THER W-MINERALS TABLET PO SCH (08:48)
[2020-06-02] MEDS: ASCORBIC ACID 500 MG TABLET PO SCH (08:48)
[2020-06-02 12:00] VITALS: BP 108/64
[2020-06-02 16:00] VITALS: BP 102/64
[2020-06-02 20:00] VITALS: BP 101/68
[2020-06-03] VITALS (7 sets, daily range): BP systolic 84–99; BP diastolic 57–71
[2020-06-03] MEDS: ACETAMINOPHEN 325MG TABLET PO PRN (01:53)
[2020-06-03] MEDS: MULTIVITAMINS,THER W-MINERALS TABLET PO SCH (09:49)
[2020-06-03] MEDS: DEXAMETHASONE 4MG/ML 1ML VIAL IV SCH ×2 (09:49→17:50)
[2020-06-03] MEDS: ASCORBIC ACID 500 MG TABLET PO SCH (09:49)
[2020-06-04] VITALS: BP 91/64
[2020-06-04 04:00] VITALS: BP 101/70
[2020-06-04 08:00] VITALS: BP 92/62
[2020-06-04] MEDS ORDERED: IPRATROPIUM/ALBUTEROL 0.5-3(2.5)MG/3ML NEB HHN PRN (09:00)
[2020-06-04] MEDS: ASCORBIC ACID 500 MG TABLET PO SCH (09:36)
[2020-06-04] MEDS: DEXAMETHASONE 4MG/ML 1ML VIAL IV SCH ×2 (09:36→18:02)
[2020-06-04] MEDS: MULTIVITAMINS,THER W-MINERALS TABLET PO SCH (09:36)
[2020-06-04 12:00] VITALS: BP 90/67
[2020-06-04] MEDS ORDERED: IPRATROPIUM/ALBUTEROL 0.5-3(2.5)MG/3ML NEB HHN SCH (12:00)
[2020-06-04 16:00] VITALS: BP 101/70
[2020-06-04] MEDS: NYSTATIN 100,000 UNITS/ML 5ML UDC SSW SCH (18:02)
[2020-06-04 20:00] VITALS: BP 100/63
[2020-06-05] VITALS (7 sets, daily range): BP systolic 92–101; BP diastolic 58–70
[2020-06-05] MEDS: NYSTATIN 100,000 UNITS/ML 5ML UDC SSW SCH ×4 (02:10→17:36)
[2020-06-05 06:10] LABS: HEMATOCRIT. 40.8 % (42.0-52.0); HEMOGLOBIN. 13.6 g/dL (14.0-18.0); MEAN CORPUSCULAR HEMOGLOBIN 30.7 pg (28.0-32.0); MEAN CORPUSCULAR VOLUME 91.7 fL (80.0-94.0); MEAN PLATELET VOLUME 10.7 fl (7.4-10.4); RED BLOOD CELL COUNT 4.44 mill/uL (4.7-6.1); RED CELL DISTRIBUTION WIDTH 15.8 % (11.6-14.6)
[2020-06-05 06:26] LABS: CHLORIDE 108 mEq/L (98-107)
[2020-06-05 06:33] LABS: PLATELET 47 x1000/uL (130-400)
[2020-06-05] MEDS: DEXAMETHASONE 4MG/ML 1ML VIAL IV SCH ×2 (09:32→17:36)
[2020-06-05] MEDS: ASCORBIC ACID 500 MG TABLET PO SCH (09:32)
[2020-06-05] MEDS: MULTIVITAMINS,THER W-MINERALS TABLET PO SCH (09:32)
[2020-06-05 10:13] LABS: BG BASE EXCESS 3.2 mmol/L (-2.0-2.0); BG CARBOXYHEMOGLOBIN 1.5 % (0.5-1.5); BG DEOXYHEMOGLOBIN 16.9 % (0.0-5.0); BG FRACTION INSPIRED OXYGEN 48; BG HCO3 ACT 25.4 mmol/L (22.0-26.0); BG METHEMOGLOBIN 0.1 % (0.0-1.5); BG OXYGEN SATURATION 82.8 % (92.0-98.5); BG OXYHEMOGLOBIN 81.5 % (94.0-97.0); BG PH 7.518 (7.350-7.450); BG PO2 43.3 mmHg (75.0-100.0); BG SAMPLE SITE RIGHT BRACHIAL; BG TOTAL HEMOGLOBIN 14.8 g/dL (12.0-18.0); BG VENT MODE NASAL CANNULA
[2020-06-05] MEDS: ACETAMINOPHEN 325MG TABLET PO PRN (17:42)
[2020-06-05 22:55] LABS: PLATELET ESTIMATE MARKEDLY DECREASED
[2020-06-06] VITALS: BP 98/64
[2020-06-06 04:00] VITALS: BP 106/68
[2020-06-06] MEDS: NYSTATIN 100,000 UNITS/ML 5ML UDC SSW SCH ×4 (06:42→17:05)
[2020-06-06 08:00] VITALS: BP 108/75
[2020-06-06] MEDS: MULTIVITAMINS,THER W-MINERALS TABLET PO SCH (08:58)
[2020-06-06] MEDS: DEXAMETHASONE 4MG/ML 1ML VIAL IV SCH ×2 (08:58→17:05)
[2020-06-06] MEDS: ASCORBIC ACID 500 MG TABLET PO SCH (08:58)
[2020-06-06 12:00] VITALS: BP 112/60
[2020-06-06 16:00] VITALS: BP 106/62
[2020-06-06 20:00] VITALS: BP 95/56
[2020-06-07] VITALS (7 sets, daily range): BP systolic 90–121; BP diastolic 60–82
[2020-06-07] MEDS: NYSTATIN 100,000 UNITS/ML 5ML UDC SSW SCH ×6 (06:25→23:13)
[2020-06-07] MEDS: MULTIVITAMINS,THER W-MINERALS TABLET PO SCH (08:11)
[2020-06-07] MEDS: DEXAMETHASONE 4MG/ML 1ML VIAL IV SCH ×2 (08:11→17:23)
[2020-06-07] MEDS: ASCORBIC ACID 500 MG TABLET PO SCH (08:11)
[2020-06-07 12:16] LABS: BG BASE EXCESS 4.2 mmol/L (-2.0-2.0); BG CARBOXYHEMOGLOBIN 0.4 % (0.5-1.5); BG DEOXYHEMOGLOBIN 6.3 % (0.0-5.0); BG FRACTION INSPIRED OXYGEN 100; BG METHEMOGLOBIN 0.3 % (0.0-1.5); BG OXYGEN SATURATION 93.7 % (92.0-98.5); BG PCO2 34.6 mmHg (35.0-45.0); BG PO2 66.3 mmHg (75.0-100.0); BG TOTAL HEMOGLOBIN 14.4 g/dL (12.0-18.0); BG VENT MODE MASK - BIPAP
[2020-06-07] MEDS ORDERED: ALBUTEROL 6.7GM HFA INHALER ORI PRN (13:45)
[2020-06-07] MEDS: CEFEPIME 1,000 MG in DEXTROSE 5% WATER 50 ML IV SCH (18:20)
[2020-06-07] MEDS: LEVOFLOXACIN 500MG PREMIX 100 ML IV SCH (18:20)
[2020-06-07] MEDS ORDERED: VANCOMYCIN 1500MG in DEXTROSE 5% WATER 250ML IV NR (20:00)
[2020-06-08] VITALS: BP 102/57
[2020-06-08] MEDS: VANCOMYCIN 750 MG PREMIX 150 ML IV SCH ×3 (03:22→21:04)
[2020-06-08 04:00] VITALS: BP 118/72
[2020-06-08] MEDS: CEFEPIME 1,000 MG in DEXTROSE 5% WATER 50 ML IV SCH ×2 (05:03→17:25)
[2020-06-08] MEDS: NYSTATIN 100,000 UNITS/ML 5ML UDC SSW SCH ×5 (05:49→17:40)
[2020-06-08 08:00] VITALS: BP 114/63
[2020-06-08] MEDS: ASCORBIC ACID 500 MG TABLET PO SCH (08:49)
[2020-06-08] MEDS: DEXAMETHASONE 4MG/ML 1ML VIAL IV SCH ×2 (08:49→17:25)
[2020-06-08] MEDS: MULTIVITAMINS,THER W-MINERALS TABLET PO SCH (08:49)
[2020-06-08 09:24] LABS: CHLORIDE 110 mEq/L (98-107)
[2020-06-08 09:37] LABS: HEMATOCRIT. 39.7 % (42.0-52.0); MEAN CORPUSCULAR HEMOGLOBIN 29.8 pg (28.0-32.0); MEAN CORPUSCULAR VOLUME 91.1 fL (80.0-94.0); MEAN PLATELET VOLUME 10.8 fl (7.4-10.4); PLATELET 51 x1000/uL (130-400); RED BLOOD CELL COUNT 4.35 mill/uL (4.7-6.1)
[2020-06-08 10:40] LABS: BG BASE EXCESS 2.7 mmol/L (-2.0-2.0); BG CARBOXYHEMOGLOBIN 0.6 % (0.5-1.5); BG FRACTION INSPIRED OXYGEN 100; BG HCO3 ACT 25.7 mmol/L (22.0-26.0); BG METHEMOGLOBIN 0.4 % (0.0-1.5); BG PCO2 34.7 mmHg (35.0-45.0); BG PH 7.488 (7.350-7.450); BG PO2 88.1 mmHg (75.0-100.0); BG SAMPLE SITE RIGHT RADIAL; BG TOTAL HEMOGLOBIN 13.7 g/dL (12.0-18.0); BG TOTAL RESPIRATORY RATE 32 b/min; BG VENT MODE MASK - BIPAP
[2020-06-08 12:00] VITALS: BP 111/72
[2020-06-08 14:34] LABS: PLATELET ESTIMATE MARKEDLY DECREASED
[2020-06-08 16:00] VITALS: BP 111/65
[2020-06-08] MEDS: LEVOFLOXACIN 500MG PREMIX 100 ML IV SCH (18:34)
[2020-06-08 20:00] VITALS: BP 90/64
[2020-06-09 04:00] VITALS: BP 99/57
[2020-06-09] MEDS: CEFEPIME 1,000 MG in DEXTROSE 5% WATER 50 ML IV SCH ×2 (04:55→17:05)
[2020-06-09] MEDS: VANCOMYCIN 750 MG PREMIX 150 ML IV SCH (05:07)
[2020-06-09] MEDS: NYSTATIN 100,000 UNITS/ML 5ML UDC SSW SCH ×4 (06:34→17:05)
[2020-06-09 08:00] VITALS: BP 97/65
[2020-06-09] MEDS: MULTIVITAMINS,THER W-MINERALS TABLET PO SCH (08:57)
[2020-06-09] MEDS: ASCORBIC ACID 500 MG TABLET PO SCH (08:57)
[2020-06-09] MEDS: DEXAMETHASONE 4MG/ML 1ML VIAL IV SCH ×2 (08:58→17:05)
[2020-06-09] MEDS: VANCOMYCIN 1250MG in DEXTROSE 5% WATER 250ML IV SCH ×2 (11:53→22:27)
[2020-06-09 16:00] VITALS: BP 146/52
[2020-06-09] MEDS: LEVOFLOXACIN 500MG PREMIX 100 ML IV SCH (18:22)
[2020-06-09 20:00] VITALS: BP 95/55
[2020-06-09] MEDS: ACETAMINOPHEN 325MG TABLET PO PRN (22:27)
[2020-06-10] VITALS: BP 90/61
[2020-06-10] MEDS: NYSTATIN 100,000 UNITS/ML 5ML UDC SSW SCH ×3 (00:05→12:16)
[2020-06-10 04:00] VITALS: BP 96/65
[2020-06-10] MEDS: VANCOMYCIN 1250MG in DEXTROSE 5% WATER 250ML IV SCH ×3 (04:00→20:41)
[2020-06-10] MEDS: CEFEPIME 1,000 MG in DEXTROSE 5% WATER 50 ML IV SCH ×2 (05:01→17:26)
[2020-06-10 08:00] VITALS: BP 101/58
[2020-06-10] MEDS: ASCORBIC ACID 500 MG TABLET PO SCH (09:19)
[2020-06-10] MEDS: DEXAMETHASONE 4MG/ML 1ML VIAL IV SCH (09:19)
[2020-06-10] MEDS: MULTIVITAMINS,THER W-MINERALS TABLET PO SCH (09:19)
[2020-06-10 10:24] LABS: CHLORIDE 106 mEq/L (98-107)
[2020-06-10 10:30] LABS: HEMATOCRIT. 37.9 % (42.0-52.0); HEMOGLOBIN. 12.6 g/dL (14.0-18.0); MEAN CORPUSCULAR HEMOGLOBIN 30.1 pg (28.0-32.0); MEAN CORPUSCULAR VOLUME 90.6 fL (80.0-94.0); MEAN PLATELET VOLUME 11.6 fl (7.4-10.4); RED BLOOD CELL COUNT 4.19 mill/uL (4.7-6.1); RED CELL DISTRIBUTION WIDTH 16.1 % (11.6-14.6)
[2020-06-10 10:36] LABS: PLATELET 41 x1000/uL (130-400)
[2020-06-10 12:00] VITALS: BP_SYST 91; BP_SYST 92; BP_DIAS 46; BP_DIAS 50
[2020-06-10] MEDS ORDERED: IPRATROPIUM/ALBUTEROL 0.5-3(2.5)MG/3ML NEB HHN PRN (13:45)
[2020-06-10] MEDS: PREDNISONE 20MG TABLET PO SCH (14:02)
[2020-06-10 16:00] VITALS: BP 93/53
[2020-06-10] MEDS: IPRATROPIUM/ALBUTEROL 0.5-3(2.5)MG/3ML NEB HHN SCH ×2 (17:56→21:30)
[2020-06-10] MEDS: LEVOFLOXACIN 500MG PREMIX 100 ML IV SCH (18:33)
[2020-06-10 20:00] VITALS: BP_SYST 107; BP_SYST 129; BP_DIAS 45; BP_DIAS 98
[2020-06-10 21:22] LABS: PLATELET ESTIMATE MARKEDLY DECREASED
[2020-06-11] VITALS (9 sets, daily range): BP systolic 67–126; BP diastolic 41–71
[2020-06-11] MEDS: ACETAMINOPHEN 325MG TABLET PO PRN ×2 (00:50→18:17)
[2020-06-11] MEDS: IPRATROPIUM/ALBUTEROL 0.5-3(2.5)MG/3ML NEB HHN SCH ×3 (01:25→20:43)
[2020-06-11] MEDS: VANCOMYCIN 1250MG in DEXTROSE 5% WATER 250ML IV SCH (04:24)
[2020-06-11] MEDS: CEFEPIME 1,000 MG in DEXTROSE 5% WATER 50 ML IV SCH ×2 (05:57→20:35)
[2020-06-11] MEDS: MULTIVITAMINS,THER W-MINERALS TABLET PO SCH (08:03)
[2020-06-11] MEDS: ASCORBIC ACID 500 MG TABLET PO SCH (08:03)
[2020-06-11] MEDS: PREDNISONE 20MG TABLET PO SCH (08:03)
[2020-06-11 09:14] LABS: CHLORIDE 107 mEq/L (98-107)
[2020-06-11] MEDS: MIDODRINE HCL 2.5MG TABLET PO SCH ×3 (09:35→17:25)
[2020-06-11 17:41] LABS: BG BASE EXCESS 1.1 mmol/L (-2.0-2.0); BG CARBOXYHEMOGLOBIN 0.7 % (0.5-1.5); BG DEOXYHEMOGLOBIN 13.3 % (0.0-5.0); BG FRACTION INSPIRED OXYGEN 100; BG HCO3 ACT 23.5 mmol/L (22.0-26.0); BG METHEMOGLOBIN 0.2 % (0.0-1.5); BG OXYGEN SATURATION 86.6 % (92.0-98.5); BG OXYHEMOGLOBIN 85.8 % (94.0-97.0); BG PCO2 30.7 mmHg (35.0-45.0); BG PH 7.502 (7.350-7.450); BG PO2 47.9 mmHg (75.0-100.0); BG SAMPLE SITE RIGHT RADIAL; BG TOTAL HEMOGLOBIN 12.9 g/dL (12.0-18.0); BG VENT MODE HIGH FLOW
[2020-06-11] MEDS: LEVOFLOXACIN 500MG PREMIX 100 ML IV SCH (20:35)
[2020-06-12] VITALS (11 sets, daily range): BP systolic 89–121; BP diastolic 47–83
[2020-06-12] MEDS: VANCOMYCIN 1 G PREMIX 200 ML IV SCH ×3 (00:03→23:32)
[2020-06-12] MEDS: IPRATROPIUM/ALBUTEROL 0.5-3(2.5)MG/3ML NEB HHN SCH ×6 (00:08→20:10)
[2020-06-12] MEDS: ACETYLCYSTEINE 100MG/ML 10% VIAL 4ML INH SCH ×4 (00:08→20:10)
[2020-06-12] MEDS: CEFEPIME 1,000 MG in DEXTROSE 5% WATER 50 ML IV SCH ×2 (05:44→18:19)
[2020-06-12] MEDS: MULTIVITAMINS,THER W-MINERALS TABLET PO SCH (08:55)
[2020-06-12] MEDS: MIDODRINE HCL 2.5MG TABLET PO SCH ×3 (08:55→18:17)
[2020-06-12] MEDS: ASCORBIC ACID 500 MG TABLET PO SCH (08:55)
[2020-06-12] MEDS: PREDNISONE 20MG TABLET PO SCH (08:55)
[2020-06-12 11:19] LABS: BG BASE EXCESS 0.9 mmol/L (-2.0-2.0); BG CARBOXYHEMOGLOBIN 0.3 % (0.5-1.5); BG DEOXYHEMOGLOBIN 5.6 % (0.0-5.0); BG FRACTION INSPIRED OXYGEN 100; BG METHEMOGLOBIN 0.4 % (0.0-1.5); BG OXYGEN SATURATION 94.4 % (92.0-98.5); BG OXYHEMOGLOBIN 93.7 % (94.0-97.0); BG PCO2 33.3 mmHg (35.0-45.0); BG PH 7.475 (7.350-7.450); BG PO2 68.5 mmHg (75.0-100.0); BG SAMPLE SITE LEFT RADIAL; BG TOTAL HEMOGLOBIN 12.1 g/dL (12.0-18.0); BG VENT MODE MASK - BIPAP
[2020-06-12] MEDS: DEXT 5%/0.9% NACL 1,000 ML IV SCH ×2 (12:48→23:32)
[2020-06-12] MEDS: LEVOFLOXACIN 500MG PREMIX 100 ML IV SCH (20:27)
[2020-06-12] MEDS ORDERED: ALBUMIN HUMAN 25GM/100ML (25%) IV NR (22:00)
[2020-06-12] MEDS: MIDODRINE HCL 5MG TABLET PO SCH (22:21)
[2020-06-13] VITALS (24 sets, daily range): BP systolic 54–124; BP diastolic 22–96
[2020-06-13] MEDS: IPRATROPIUM/ALBUTEROL 0.5-3(2.5)MG/3ML NEB HHN SCH ×5 (00:15→16:00)
[2020-06-13] MEDS: ACETYLCYSTEINE 100MG/ML 10% VIAL 4ML INH SCH ×2 (04:21→08:50)
[2020-06-13] MEDS: CEFEPIME 1,000 MG in DEXTROSE 5% WATER 50 ML IV SCH (06:03)
[2020-06-13] MEDS: MIDODRINE HCL 5MG TABLET PO SCH (06:03)
[2020-06-13 06:46] LABS: HEMATOCRIT. 31.1 % (42.0-52.0); HEMOGLOBIN. 10.5 g/dL (14.0-18.0); MEAN CORPUSCULAR HEMOGLOBIN 30.8 pg (28.0-32.0); MEAN CORPUSCULAR VOLUME 91.1 fL (80.0-94.0); RED BLOOD CELL COUNT 3.41 mill/uL (4.7-6.1); RED CELL DISTRIBUTION WIDTH 16.3 % (11.6-14.6)
[2020-06-13 06:48] LABS: CHLORIDE 111 mEq/L (98-107)
[2020-06-13] MEDS: PREDNISONE 20MG TABLET PO SCH (09:53)
[2020-06-13] MEDS: MULTIVITAMINS,THER W-MINERALS TABLET PO SCH (09:53)
[2020-06-13] MEDS: ASCORBIC ACID 500 MG TABLET PO SCH (09:53)
[2020-06-13 10:31] LABS: BG BASE EXCESS -2.4 mmol/L (-2.0-2.0); BG CARBOXYHEMOGLOBIN 0.3 % (0.5-1.5); BG DEOXYHEMOGLOBIN 8.9 % (0.0-5.0); BG FRACTION INSPIRED OXYGEN 100; BG METHEMOGLOBIN 0.1 % (0.0-1.5); BG OXYGEN SATURATION 91.1 % (92.0-98.5); BG OXYHEMOGLOBIN 90.7 % (94.0-97.0); BG PCO2 31.5 mmHg (35.0-45.0); BG PH 7.442 (7.350-7.450); BG PO2 61.6 mmHg (75.0-100.0); BG SAMPLE SITE RIGHT RADIAL; BG TOTAL HEMOGLOBIN 10.7 g/dL (12.0-18.0); BG TOTAL RESPIRATORY RATE 24 b/min; BG VENT MODE MASK - BIPAP
[2020-06-13] MEDS: VANCOMYCIN 1 G PREMIX 200 ML IV SCH (10:54)
[2020-06-13] MEDS ORDERED: MIDAZOLAM HCL 100 MG in SODIUM CHLORIDE 0.9% 80 ML IV PRN (12:00)
[2020-06-13] MEDS ORDERED: FENTANYL CITRATE/PF 2,500 MCG in SODIUM CHLORIDE 0.9% 200 ML IV PRN (12:00)
[2020-06-13] MEDS ORDERED: PHENYLEPHRINE 100 MG in DEXT 5% WATER 240 ML IV PRN (12:00)
[2020-06-13] MEDS ORDERED: SUCCINYLCHOLINE CHLORIDE 200MG/10ML IV ONE (12:50)
[2020-06-13] MEDS ORDERED: ETOMIDATE 2MG/ML 10ML VIAL IV ONE (12:50)
[2020-06-13 13:56] LABS: BG DEOXYHEMOGLOBIN 10.5 % (0.0-5.0); BG FRACTION INSPIRED OXYGEN 100; BG HCO3 ACT 23.6 mmol/L (22.0-26.0); BG METHEMOGLOBIN 0.3 % (0.0-1.5); BG OXYGEN SATURATION 89.5 % (92.0-98.5); BG OXYHEMOGLOBIN 89.2 % (94.0-97.0); BG PCO2 76.2 mmHg (35.0-45.0); BG PH 7.108 (7.350-7.450); BG PO2 77.1 mmHg (75.0-100.0); BG SAMPLE SITE RIGHT RADIAL; BG TOTAL HEMOGLOBIN 11.5 g/dL (12.0-18.0); BG TOTAL RESPIRATORY RATE 27 b/min; BG VENT MODE PRVC
[2020-06-13] MEDS ORDERED: VASOPRESSIN 20 UNIT in SODIUM CHLORIDE 0.9% 99 ML IV PRN (14:15)
[2020-06-13] MEDS ORDERED: SODIUM CHLORIDE 0.9% 100 ML IV ONE (14:45)
[2020-06-13] MEDS ORDERED: SODIUM CHLORIDE 0.9% 1,000 ML IV ONE (15:00)
[2020-06-13] MEDS ORDERED: AMIODARONE HCL 150 MG in DEXT 5% WATER 100 ML IV SCH (15:00)
[2020-06-13] MEDS ORDERED: ALBUMIN HUMAN 25GM/100ML (25%) IV NR (15:00)
[2020-06-13] MEDS ORDERED: AMIODARONE HCL 900 MG in DEXT 5% WATER 482 ML IV ONE (15:10)
[2020-06-13] MEDS ORDERED: AMIODARONE HCL 900 MG in DEXT 5% WATER 482 ML IV PRN (15:45)
[2020-06-13 15:54] LABS: BG BASE EXCESS -7.4 mmol/L (-2.0-2.0); BG CARBOXYHEMOGLOBIN 0.2 % (0.5-1.5); BG DEOXYHEMOGLOBIN 22.9 % (0.0-5.0); BG FRACTION INSPIRED OXYGEN 100; BG HCO3 ACT 21.2 mmol/L (22.0-26.0); BG METHEMOGLOBIN 0.2 % (0.0-1.5); BG OXYHEMOGLOBIN 76.7 % (94.0-97.0); BG PCO2 58.5 mmHg (35.0-45.0); BG PH 7.177 (7.350-7.450); BG PO2 50.6 mmHg (75.0-100.0); BG SAMPLE SITE RIGHT RADIAL; BG TOTAL HEMOGLOBIN 10.5 g/dL (12.0-18.0); BG VENT MODE PRVC
[2020-06-13] MEDS ORDERED: SODIUM BICARBONATE 8.4% 1 MEQ/ML 50ML SYR IV NR (16:15)
[2020-06-13] MEDS ORDERED: EPINEPHRINE 0.1MG/ML (1:10,000) 10ML SYR ONE (20:00)
[2020-06-13] MEDS ORDERED: SODIUM BICARBONATE 8.4% 1 MEQ/ML 50ML SYR IV ONE (20:00)
[2020-06-13] MEDS ORDERED: CALCIUM CHLORIDE 1GM/10ML SYR IV ONE (20:00)
[2020-06-13] MEDS ORDERED: ATROPINE SULFATE 1MG/10ML SYR ONE (20:00)
[2020-06-13] MEDS ORDERED: DEXTROSE 50% WATER 50ML SYRINGE IV ONE (20:00)
[2020-06-13 23:21] LABS: PLATELET 19 x1000/uL (130-400); PLATELET ESTIMATE MARKEDLY DECREASED
[2020-06-14] MEDS ORDERED: VANCOMYCIN 750 MG PREMIX 150 ML IV SCH (02:00)
== END 2020-06-13 20:32 | disposition expired | DRG 720 ==
LOC: ER 07:39 → 8WST 10:12 → ENRESERV 04-28 08:18 → 7WST 05-20 12:07 → 5WST 05-25 18:36 → 7WST 06-07 06:10 → 5WST 06-09 13:19 → 5EST 06-11 16:15
PROVIDERS: ADMIT Internal Medicine; ATTEND Internal Medicine
PROC: 5A09557 Assistance with Respiratory Ventilation, Greater than 96 Consecutive Hours, Continuous Positive Airway Pressure (ICD-10-PCS; 2020-04-30)
PROC: 02HV33Z Insertion of Infusion Device into Superior Vena Cava, Percutaneous Approach (ICD-10-PCS; principal; 2020-06-12)
PROC: B548ZZA Ultrasonography of Superior Vena Cava, Guidance (ICD-10-PCS; 2020-06-12)
PROC: 5A1935Z Respiratory Ventilation, Less than 24 Consecutive Hours (ICD-10-PCS; 2020-06-13)
PROC: 0BH17EZ Insertion of Endotracheal Airway into Trachea, Via Natural or Artificial Opening (ICD-10-PCS; 2020-06-13)
PROC: 5A12012 Performance of Cardiac Output, Single, Manual (ICD-10-PCS; 2020-06-13)
DX: A41.89 Other specified sepsis (principal); U07.1 COVID-19; J96.01 Acute respiratory failure with hypoxia; R65.20 Severe sepsis without septic shock; J12.82 Pneumonia due to coronavirus disease 2019; E44.0 Moderate protein-calorie malnutrition; I77.6 Arteritis, unspecified; B37.9 Candidiasis, unspecified; E66.01 Morbid (severe) obesity due to excess calories; G93.40 Encephalopathy, unspecified; T50.995A Adverse effect of other drugs, medicaments and biological substances, initial encounter; D69.59 Other secondary thrombocytopenia; J84.10 Pulmonary fibrosis, unspecified; Z68.30 Body mass index [BMI] 30.0-30.9, adult; Y92.89 Other specified places as the place of occurrence of the external cause
CPT/HCPCS: 36415; 36600; 71045; 71275; 76937; 80048; 80053; 80061; 80202; 80305; 82375; 82550; 82805; 82962; 83036; 83520; 83615; 83735; 83880; 84100; 84145; 84550; 85025; 85379; 85384; 86022; 86038; 86140; 86256; 86430; 87070; 87426; 87449; 87635; 92950; 93005; 93306; 93970; 94002; 94640; 94660; 94667; 97110; 97162; 97164; 97166; 97530; 99285; A6261; C1725; C1893; J0282; J0330; J0456; J0461; J0692; J0696; J1100; J1650; J1885; J1940; J1956; J2250; J2920; J2930; J3010; J3370; J3490; J7042; J7050; J7060; J7512; J7608; P9047; Q9967; U0003; A4315